=== PATIENT | female | born 1965 | race Caucasian/White ===

== ENCOUNTER → 2023-09-02 14:13 | Outpatient (REF) | payer MEDICARE, OTHER, SELFPAY | LOC: RAD 14:13 | PROVIDERS: ATTENDING PHYSICIAN Internal Medicine Rheumatology; FAMILY PHYSICIAN Family Medicine | DX: M25.561 Pain in right knee (principal); M25.562 Pain in left knee | CPT/HCPCS: 73560; 73565 ==

== ENCOUNTER → 2024-03-23 14:40 | Outpatient (REF) | payer MEDICARE, OTHER, SELFPAY | LOC: HWRAD 14:40 | PROVIDERS: ATTENDING PHYSICIAN Internal Medicine Rheumatology; FAMILY PHYSICIAN Family Medicine | DX: M25.572 Pain in left ankle and joints of left foot (principal) | CPT/HCPCS: 73610 ==

== ENCOUNTER 2025-03-01 06:18 | Day surgery (SDC) | payer MEDICARE, OTHER, SELFPAY ==
[2025-03-01] VITALS (8 sets, daily range): BP systolic 109–126; BP diastolic 62–73; BMI 25.6
[2025-03-01] MEDS: MOBIC 15 MG PO (09:59)
[2025-03-01] MEDS: TYLENOL 1000 MG PO (09:59)
[2025-03-01] MEDS: NORMOSOL-R/PLASMALYTE-A 1000 IV (10:15)
[2025-03-01] MEDS: SUBLIMAZE 25 MCG IV ×2 (13:32→13:41)
== END 2025-03-01 16:01 | disposition home or self-care (01) ==
LOC: SDS 06:18
PROVIDERS: ATTENDING PHYSICIAN Student in an Organized Health Care Education/Training Program
DX: M19.072 Primary osteoarthritis, left ankle and foot (principal); M65.872 Other synovitis and tenosynovitis, left ankle and foot; M76.72 Peroneal tendinitis, left leg
CPT/HCPCS: 28725; 27680; 73610; 76000; C1713; C1763